=== PATIENT | female | born 1975 | race Caucasian/White ===

== ENCOUNTER 2022-05-22 16:00 | Emergency (ER) | payer MEDICAID ==
[~2022-05-22] VITALS: Ht 162.6 cm; Wt 90.3 kg
[2022-05-22 16:11] VITALS: BP 174/105
--- NOTE | 2022-05-22 16:57 | NUR ---
47/F C/O COUGH AND UPPER BACK PAIN AND DIFFICULTY BREATHING ONSET 6 DAYS AGO. STATES TESTING NEGATIVE FOR COVID 6 DAYS AGO. STATES WAS SEEN AT [facility] FOR SAME S/SX ON 05/13. PT IS HERE UNDER PCP REFERRAL FOR ELEVATED BP OF 180/113 AND LOW O2 SAT AT 86% RA. B[ 174/105 AT TRIAGE AND O2 @ 98% RA AT THIS TIME. AFEBRILE. AAOX4, AMBULATORY, VITALS STABLE. PMH: PT HAD COVID 19 TWICE : IN AUG 2019 AND SEP 2020
--- NOTE | 2022-05-22 17:01 | NUR ---
URINE COLLECTED. XR AT BEDSIDE
[2022-05-22 17:59] LABS: BASOPHILS # (AUTO) 0.2 K/uL (0.00-0.22); BASOPHILS % (AUTO) 2.6 % (0.0-2.0); EOSINOPHILS # (AUTO) 0.2 K/uL (0-0.4); HEMATOCRIT 30.8 % (36-48); HEMOGLOBIN 9.4 g/dL (12.0-16.0); LYMPHOCYTES # (AUTO) 3.2 K/uL (2.5-16.5); LYMPHOCYTES % (AUTO) 39.6 % (20.5-51.1); MEAN CORPUSCULAR HEMOGLOBIN 17 pg (27-31); MEAN CORPUSCULAR HGB CONC 30 g/dL (33-37); MEAN CORPUSCULAR VOLUME 57.1 fL (80-94); MONOCYTES # (AUTO) 0.4 K/uL (0.8-1.0); MONOCYTES % (AUTO) 4.4 % (1.7-9.3); NEUTROPHILS # (AUTO) 4.2 K/uL (1.8-7.7); NEUTROPHILS % (AUTO) 51.4 % (42.2-75.2); PLATELET COUNT (AUTO) 316 K/uL (140-450); RED CELL DISTRIBUTION WIDTH 19.8 % (11.6-13.7); WHITE BLOOD COUNT (AUTO) 8.2 K/uL (4.8-10.8)
[2022-05-22 18:07] LABS: ANION GAP 15.3 (8-16); CARBON DIOXIDE 24.6 mmol/L (21-32); CREATININE 0.7 mg/dL (0.6-1.3); POTASSIUM 3.9 mmol/L (3.5-5.1)
--- NOTE | 2022-05-22 19:14 | NUR ---
Received report from JORGITO Xiong and continue care of patient.
[2022-05-22] MEDS ORDERED: PRED20TA5 PO (19:29)
[2022-05-22] MEDS ORDERED: IBUP-2213 PO (19:29)
[2022-05-22 19:42] VITALS: BP 157/95
--- NOTE | 2022-05-22 19:42 | NUR ---
Patient discharged with v/s stable. Written and verbal after care instructions given and explained. Patient alert, oriented and verbalized understanding of instructions. Ambulatory with steady gait. All questions addressed prior to discharge. ID band removed. Patient advised to follow up with PMD. Rx of Ibuprofen and Deltasone given. Patient educated on indication of medication including possible reaction and side effects. Opportunity to ask questions provided and answered.
== END 2022-05-22 19:42 | disposition home or self-care (01) ==
LOC: MED 16:00
DX: R06.02 Shortness of breath (principal); Z90.89 Acquired absence of other organs
CPT/HCPCS: 36415; 71045; 80048; 81002; 81025; 85025; 85379; 99284; Q0092

== ENCOUNTER 2023-09-02 12:54 | Inpatient (IN) | payer MEDICAID ==
[~2023-09-02] VITALS: Ht 167.6 cm; Wt 72.6 kg
[~2023-09-02 12:54] MED LIST: IBUP-2213 PO; PRED20TA5 PO
[2023-09-02 13:10] VITALS: BP 195/92; PULSE 88; RESP 18; TEMP 98; O2SAT 98
[2023-09-02 14:36] LABS: BASOPHILS % (AUTO) 0.7 % (0.0-2.0); EOSINOPHILS # (AUTO) 0.1 K/uL (0-0.4); EOSINOPHILS % (AUTO) 2.2 % (0.0-4.0); HEMATOCRIT 30.6 % (36-48); HEMOGLOBIN 9.6 g/dL (12.0-16.0); LYMPHOCYTES # (AUTO) 1.9 K/uL (2.5-16.5); LYMPHOCYTES % (AUTO) 45.7 % (20.5-51.1); MEAN CORPUSCULAR HEMOGLOBIN 19 pg (27-31); MEAN CORPUSCULAR HGB CONC 31 g/dL (33-37); MEAN CORPUSCULAR VOLUME 61.6 fL (80-94); MONOCYTES # (AUTO) 0.4 K/uL (0.8-1.0); MONOCYTES % (AUTO) 9.3 % (1.7-9.3); NEUTROPHILS # (AUTO) 1.8 K/uL (1.8-7.7); NEUTROPHILS % (AUTO) 42.1 % (42.2-75.2); PLATELET COUNT (AUTO) 259 K/uL (140-450); RED BLOOD CELL COUNT(AUTO) 4.98 MIL/uL (4.20-5.40); RED CELL DISTRIBUTION WIDTH 17.6 % (11.6-13.7); WHITE BLOOD COUNT (AUTO) 4.2 K/uL (4.8-10.8)
[2023-09-02 15:07] LABS: ALANINE AMINOTRANSFERASE 31 U/L (12-78); ALBUMIN 3.3 g/dL (3.4-5.0); ALKALINE PHOSPHATASE 115 U/L (50-136); ANION GAP 12.8 (8-16); ASPARTATE AMINOTRANSFERASE 20 U/L (15-37); CALCIUM 8.1 mg/dL (8.5-10.1); CARBON DIOXIDE 25.1 mmol/L (21-32); CHLORIDE 102 mmol/L (98-107); CREATININE 0.6 mg/dL (0.6-1.3); GFR ARICAN-AMERICAN 136 mL/min (>90); GFR NON ARICAN-AMERICAN 112 mL/min (>90); GLUCOSE 355 mg/dL (74-106); POTASSIUM 3.9 mmol/L (3.5-5.1); SODIUM SERUM 136 mmol/L (136-145); TOTAL BILIRUBIN 0.4 mg/dL (0.0-1.0); TOTAL PROTEIN, SERUM 7.7 g/dL (6.4-8.2); UREA NITROGEN, BLOOD 9 mg/dL (7-18)
[2023-09-02] MEDS ORDERED: ASPIRIN 325 MG TAB PO ONE (15:45)
[2023-09-02] MEDS ORDERED: NACL 0.9% 1,000 ML IV ONE (15:50)
[2023-09-02] MEDS ORDERED: MORPHINE SULFATE 2 MG/ML SYR IVP PRN (17:10)
[2023-09-02] MEDS ORDERED: DEXTROSE 50% 50 ML SYR IVP PRN (17:10)
[2023-09-02] MEDS ORDERED: NITROGLYCERIN 0.4 MG TAB SL PRN (17:10)
[2023-09-02] MEDS ORDERED: ACETAMINOPHEN 325 MG TAB PO PRN (17:10)
[2023-09-02] MEDS ORDERED: HYDROcodone/APAP 5/325 MG 1 TAB TAB PO PRN (17:10)
[2023-09-02] MEDS ORDERED: LORazepam 1 MG TAB PO PRN (17:10)
[2023-09-02] MEDS ORDERED: ONDANSETRON 4 MG/2 ML VIAL IVP PRN (17:10)
[2023-09-02 17:15] LABS: FLU A ANTIGEN negative (NEGATIVE); FLU B ANTIGEN NEGATIVE (NEGATIVE)
[2023-09-02] MEDS ORDERED: guaiFENesin DM 200/20 MG-10 ML 10 ML UDC PO PRN (17:15)
[2023-09-02] MEDS ORDERED: LEVALBUTEROL 0.63 MG/3 ML NEBU INH PRN (17:15)
[2023-09-02] MEDS ORDERED: ASPIRIN 81 MG TAB.CHEW PO SCH (17:18)
[2023-09-02] MEDS ORDERED: CLON0.1T16 PO (18:50)
[2023-09-02] MEDS ORDERED: HYDR-3320 PO (18:50)
[2023-09-02] MEDS ORDERED: METF-713 PO (18:50)
[2023-09-02] MEDS ORDERED: CARV12.52 PO (18:51)
[2023-09-02] MEDS: NACL 0.9% 1,000 ML IV SCH (18:54)
[2023-09-02] MEDS ORDERED: AZITHROMYCIN 500 MG in DEXTROSE 5% 250 ML IV SCH (21:00)
[2023-09-02] MEDS ORDERED: SIMVASTATIN 20 MG TAB PO SCH (21:00)
[2023-09-02] MEDS: BLOOD GLUCOSE MONITORING 1 DEV DEV FS SCH (21:44)
[2023-09-02] MEDS: INSULIN LISPRO SLIDING SCALE 100 UNITS/ML VIAL SUBQ PRN (21:47)
[2023-09-02] MEDS ORDERED: AZITHROMYCIN 500 MG INJ VIAL IV ONE (22:16)
[2023-09-02 22:30] VITALS: PULSE 88; RESP 18; O2SAT 97
[2023-09-03] VITALS: BP 148/70; PULSE 72; PULSE 76; RESP 18; TEMP 97.6; O2SAT 96
[2023-09-03 01:40] VITALS: PULSE 70; RESP 18; O2SAT 98
[2023-09-03 04:00] VITALS: BP 182/72; PULSE 66; PULSE 80; RESP 18; TEMP 98.2; O2SAT 96
[2023-09-03] MEDS: NACL 0.9% 1,000 ML IV SCH (05:40)
[2023-09-03] MEDS: INSULIN LISPRO SLIDING SCALE 100 UNITS/ML VIAL SUBQ PRN ×3 (06:41→12:44)
[2023-09-03 07:10] VITALS: O2SAT 97
[2023-09-03 07:27] LABS: BASOPHILS % (AUTO) 0.4 % (0.0-2.0); EOSINOPHILS # (AUTO) 0.1 K/uL (0-0.4); EOSINOPHILS % (AUTO) 2.5 % (0.0-4.0); HEMATOCRIT 28.3 % (36-48); HEMOGLOBIN 8.7 g/dL (12.0-16.0); LYMPHOCYTES # (AUTO) 2.8 K/uL (2.5-16.5); LYMPHOCYTES % (AUTO) 51.9 % (20.5-51.1); MEAN CORPUSCULAR HEMOGLOBIN 19 pg (27-31); MEAN CORPUSCULAR HGB CONC 31 g/dL (33-37); MEAN CORPUSCULAR VOLUME 61.3 fL (80-94); MONOCYTES # (AUTO) 0.5 K/uL (0.8-1.0); MONOCYTES % (AUTO) 9.1 % (1.7-9.3); NEUTROPHILS % (AUTO) 36.1 % (42.2-75.2); PLATELET COUNT (AUTO) 239 K/uL (140-450); RED BLOOD CELL COUNT(AUTO) 4.62 MIL/uL (4.20-5.40); RED CELL DISTRIBUTION WIDTH 17.7 % (11.6-13.7); WHITE BLOOD COUNT (AUTO) 5.5 K/uL (4.8-10.8)
[2023-09-03] MEDS: BLOOD GLUCOSE MONITORING 1 DEV DEV FS SCH ×2 (07:30→11:30)
[2023-09-03 07:51] LABS: CALCIUM 7.9 mg/dL (8.5-10.1); CARBON DIOXIDE 23.6 mmol/L (21-32); CREATININE 0.5 mg/dL (0.6-1.3); POTASSIUM 3.6 mmol/L (3.5-5.1)
[2023-09-03 08:00] VITALS: BP 167/88; PULSE 66; PULSE 73; RESP 19; TEMP 97; O2SAT 98
[2023-09-03] MEDS ORDERED: AZIT250T4 PO (12:38)
[2023-09-03] MEDS ORDERED: ROB PO (12:38)
[2023-09-03 12:50] VITALS: BP 164/85; PULSE 72; RESP 20; TEMP 96.9
== END 2023-09-03 14:30 | disposition home or self-care (01) | DRG 203 ==
LOC: MED 12:54 → MTU 17:15
PROVIDERS: ADMIT Family Medicine; ATTEND Family Medicine
DX: R07.89 Other chest pain (principal); E83.51 Hypocalcemia; R65.10 Systemic inflammatory response syndrome (SIRS) of non-infectious origin without acute organ dysfunction; J06.9 Acute upper respiratory infection, unspecified; E11.65 Type 2 diabetes mellitus with hyperglycemia; I10 Essential (primary) hypertension; Z20.822 Contact with and (suspected) exposure to COVID-19; Z90.710 Acquired absence of both cervix and uterus
CPT/HCPCS: 36415; 71045; 80048; 80053; 82948; 84484; 85025; 87081; 93005; 96360; 99285; J0456; J1815; J7060